=== PATIENT | female | born 1950 | race Caucasian/White ===

== ENCOUNTER → 2016-06-16 | Outpatient (CLI) | payer OTHER | LOC: EMI 06-14 10:00 | DX: R51 Headache (principal); J34.89 Other specified disorders of nose and nasal sinuses | CPT/HCPCS: 70553; A9577; J7050 ==

== ENCOUNTER → 2016-07-27 | Outpatient (CLI) | payer OTHER | LOC: RAD 13:34 | DX: M25.551 Pain in right hip (principal); M25.552 Pain in left hip | CPT/HCPCS: 73522 ==

== ENCOUNTER 2020-05-13 17:48 | Emergency (ER) | payer OTHER ==
[~2020-05-13 17:48] MED LIST: AUGMENTIN 875-1 EACH PO; BENTYL 20MG TAB20 MG PO; ZOFRAN ODT 4 MG4 MG PO
[2020-07-27] MEDS ORDERED: ESCITALOPRAM OX10 MG PO (07:26)
[2020-07-27] MEDS ORDERED: AMITRIPTYLINE H10 MG PO (07:26)
== END 2020-05-13 20:28 | disposition home or self-care (01) ==
LOC: ER1 17:48
DX: S06.0X0A Concussion without loss of consciousness, initial encounter (principal); Z79.899 Other long term (current) drug therapy; W22.8XXA Striking against or struck by other objects, initial encounter; Y92.009 Unspecified place in unspecified non-institutional (private) residence as the place of occurrence of the external cause
CPT/HCPCS: 70450; 99283

== ENCOUNTER → 2020-07-20 | Outpatient (CLI) | payer OTHER ==
[~2020-07-20] MED LIST changes: +AMITRIPTYLINE H10 MG PO; +ESCITALOPRAM OX10 MG PO
== END ==
LOC: EXRD 06-29 13:00
DX: Z00.01 Encounter for general adult medical examination with abnormal findings (principal); M85.88 Other specified disorders of bone density and structure, other site; M81.0 Age-related osteoporosis without current pathological fracture
CPT/HCPCS: 77080

== ENCOUNTER → 2020-07-27 | Day surgery (SDC) | payer OTHER | END | disposition home or self-care (01) | LOC: OR 07:00 | DX: K64.1 Second degree hemorrhoids (principal); K64.8 Other hemorrhoids; K64.4 Residual hemorrhoidal skin tags; E66.01 Morbid (severe) obesity due to excess calories; Z68.32 Body mass index [BMI] 32.0-32.9, adult; Z82.49 Family history of ischemic heart disease and other diseases of the circulatory system; Z87.891 Personal history of nicotine dependence | CPT/HCPCS: J2001; J2704; J7040 ==

== ENCOUNTER → 2021-01-20 | Outpatient (CLI) | payer OTHER ==
[2021-01-20 09:44] LABS: HEMOGLOBIN 13.4 gm/dl (12.3-15.3); RED BLOOD COUNT 4.45 M/UL (4.00-5.10); WHITE BLOOD COUNT 7.3 K/UL (4.5-11.0)
[2021-01-20 10:10] LABS: BUN/CREATININE RATIO 16 (0-10)
[2021-01-22 15:13] LABS: CHOLESTEROL, TOTAL 199 mg/dL (100-199); HDL SIZE 9.7 nm (>=9.2); HDL-C 69 mg/dL (>39); HDL-P (TOTAL) 36.1 umol/L (>=30.5); LARGE HDL-P 10.2 umol/L (>=4.8); LARGE VLDL-P 1.9 nmol/L (<=2.7); LDL SIZE 21.2 nm (>20.5); LDL SIZE 21.2 nm (>=20.8); LDL-C 113 mg/dL (0-99); LDL-P 1201 nmol/L (<1000); LP-IR SCORE <25 (<=45); SMALL LDL-P 397 nmol/L (<=527); TRIGLYCERIDES 94 mg/dL (0-149)
== END ==
LOC: LAB 09:09
PROVIDERS: Emergency Medicine
DX: E78.2 Mixed hyperlipidemia (principal); R19.7 Diarrhea, unspecified; R53.83 Other fatigue; Z79.899 Other long term (current) drug therapy
CPT/HCPCS: 36415; 80053; 80061; 82306; 83704; 83735; 84443; 85025; 85379

== ENCOUNTER → 2021-05-12 | Outpatient (CLI) | payer OTHER | LOC: KOH-I 08:27 | DX: R51.9 Headache, unspecified (principal); J32.0 Chronic maxillary sinusitis | CPT/HCPCS: 70486 ==